=== PATIENT | male | born 1965 | race Caucasian/White ===

== ENCOUNTER 2022-06-29 17:45 | Emergency (ER) | payer OTHER ==
[~2022-06-29] VITALS: Ht 182 cm; Wt 70.0 kg
[2022-06-29] MEDS ORDERED: NS IV 1000 ML 1,000 ML IV SCH (18:30)
[2022-06-29 18:34] LABS: CALCIUM 10.1 MG/DL (8.5-10.1); CREATININE SERUM 1.01 MG/DL (0.60-1.30); MAGNESIUM 1.9 MG/DL (1.6-2.4); POTASSIUM 4.9 MMOL/L (3.6-5.0)
--- NOTE | 2022-06-29 18:34 | ED General ---
General Chief Complaint: General Problems/Pain Stated Complaint: IRR LAB RESULTS Nursing Triage Note: PT HAD AN ABNORMAL K+ LAST WEEK SO [facility]RAW TODAY [facility] LAST WEEK IT WAS 5.8. PT HAS NO COMPLAINTS. Source of Information: Patient Exam Limitations: No Limitations History of Present Illness Date Seen by Provider: Jun 29, 2022 Time Seen by Provider: 17:53 Initial Comments This 56-year-old gentleman presents to the emergency room at the direction of the local [place] [facility] for reasons of hyperkalemia. He has multiple medical problems including hypertension, diabetes, and COPD. He notes elevation in potassium started after he began lisinopril. On June 15 he was noted to have a potassium of 5.8. His lisinopril 40 mg dose was changed to lisinopril/HCTZ 20 mg / 12.5 mg. Despite making that change, his potassium today was 6.1. He does not identify any specific physical complaints. He was directed to the emergency room by Yoko South at the [place] [facility] for IV fluids and further evaluation. Patient reports his blood sugars have been fairly well controlled in the 100-150 range. Allergies and Home Medications Allergies Coded Allergies: No Known Drug Allergies (Unverified , 06/29/22) Patient Home Medication List Home Medication List Reviewed: Yes Review of Systems Review of Systems Constitutional: no symptoms reported EENTM: no symptoms reported Respiratory: no symptoms reported Cardiovascular: no symptoms reported Gastrointestinal: no symptoms reported Genitourinary: no symptoms reported Musculoskeletal: no symptoms reported Skin: no symptoms reported Psychiatric/Neurological: No Symptoms Reported Hematologic/Lymphatic: No Symptoms Reported Past Cxaqrwb-Baojym-Aiggfh Hx Patient Social History Tobacco Use?: Yes Tobacco type used: Cigarettes Use of E-Cig and/or Vaping dev: No Substance use?: Yes (CBD) Alcohol Use?: No Pt feels they are or have been: No Past Medical History Surgeries: No Respiratory: No Cardiac: No Neurological: No Genitourinary: No Gastrointestinal: No Musculoskeletal: No Endocrine: No HEENT: No Cancer: No Psychosocial: No Integumentary: No Physical Exam Vital Signs Vital Signs - First Documented 06/29/22 18:08 Temp 36.3 Pulse 79 Resp 18 B/P (MAP) 145/84 (104) Pulse Ox 99 O2 Delivery Room Air Capillary Refill : Less Than 3 Seconds Height, Weight, BMI Height: '" Weight: lbs. oz. kg; 21.00 BMI Method: General Appearance: No Apparent Distress, WD/WN HEENT: PERRL/EOMI, Normal ENT Inspection Neck: Normal Inspection Respiratory: Lungs Clear, Normal Breath Sounds, No Accessory Muscle Use Cardiovascular: Regular Rate, Rhythm, No Edema, No Murmur Gastrointestinal: Normal Bowel Sounds, Non Tender, Soft Extremity: Normal Inspection, No Pedal Edema Neurologic/Psychiatric: Alert, Oriented x3, No Motor/Sensory Deficits, Normal Mood/Affect, supervisor testing II-XII Norm as Tested Skin: Normal Color, Warm/Dry Progress/Results/Core Measures Suspected Sepsis SIRS Temperature: Pulse: 79 Respiratory Rate: 18 Blood Pressure 145 /84 Mean: 104 Laboratory Tests 06/29/22 18:00: Creatinine 1.01 Results/Orders Lab Results Laboratory Tests Test 06/29/22 18:00 Range/Units Sodium Level 128 L 135-145 MMOL/L Potassium Level 4.9 3.6-5.0 MMOL/L Chloride Level 91 L 98-107 MMOL/L Carbon Dioxide Level 26 21-32 MMOL/L Anion Gap 11 5-14 MMOL/L Blood Urea Nitrogen 25 H 7-18 MG/DL Creatinine 1.01 0.60-1.30 MG/DL Estimat Glomerular Filtration Rate 86 BUN/Creatinine Ratio 25 Glucose Level 105 70-105 MG/DL Calcium Level 10.1 8.5-10.1 MG/DL Magnesium Level 1.9 1.6-2.4 MG/DL My Orders Orders - JAMES BLACK MD Basic Metabolic Panel (06/29/22 17:53) Magnesium (06/29/22 17:53) Ed Iv/Invasive Line Start (06/29/22 17:53) Ekg Tracing (06/29/22 18:19) Ns Iv 1000 Ml (Sodium Chloride 0.9%) (06/29/22 18:30) Vital Signs/I&O 06/29/22 06/29/22 18:08 18:58 Temp 36.3 Pulse 79 73 Resp 18 16 B/P (MAP) 145/84 (104) 145/84 Pulse Ox 99 98 O2 Delivery Room Air Room Air 06/30/22 00:00 Intake Total 1000 ml Balance 1000 ml Capillary Refill : Less Than 3 Seconds Blood Pressure Mean: 104 Progress Note : Progress Note Patient was hydrated with a liter of IV normal saline. Potassium on our blood draw was normal. He did have some hyponatremia. The use of lisinopril and hydrochlorothiazide may be altering potassium and sodium levels. He was advised to discuss this with Yoko tomorrow and his follow-up appointment and to seek an alternative to lisinopril and hydrochlorothiazide for treatment of his blood pressure. ECG Initial ECG Impression Date: Jun 29, 2022 Initial ECG Impression Time: 18:14 Initial ECG Rate: 77 Initial ECG Rhythm: Normal Sinus Initial ECG Impression: Normal Comment Normal sinus rhythm with no ST elevation or depression. No abnormal intervals or axis deviation Departure Impression Primary Impression: Hyponatremia Additional Impression: History of hyperkalemia Disposition: HOME, SELF-CARE Condition: Improved Departure-Patient Inst. Decision time for Depature: 18:52 Referrals: YOKO MORRIS (PCP/Family) Primary Care Physician Patient Instructions: Hyponatremia (DC) Add. Discharge Instructions: Your potassium today in the emergency room was normal at 4.9. Your sodium was mildly low at 128. Keep your appointment with Yoko South tomorrow. Discuss changing your blood pressure medication to medications that do not have potential for disturbing electrolyte levels. The lisinopril has potential to increase potassium levels and the hydrochlorothiazide has potential to decrease sodium levels. There are alternatives such as amlodipine may be better tolerated and less likely to disrupt your electrolytes. Please discuss this with Yoko tomorrow. Return to care if you have any symptoms that need urgent attention. All discharge instructions reviewed with patient and/or family. Voiced understanding. JAMES BLACK MD Jun 29, 2022 18:33
[2022-06-29 18:58] VITALS: BP 145/84
== END 2022-06-29 19:23 | disposition home or self-care (01) ==
LOC: ER FS 17:49
DX: E87.1 Hypo-osmolality and hyponatremia (principal); E87.5 Hyperkalemia; I10 Essential (primary) hypertension; F17.210 Nicotine dependence, cigarettes, uncomplicated; Z79.899 Other long term (current) drug therapy
CPT/HCPCS: 36415; 80048; 83735; 93005

== ENCOUNTER → 2022-11-21 | Outpatient (CLI) | payer OTHER ==
--- NOTE | 2022-11-21 14:48 | Diagnostic Imaging Report ---
CLINICAL INDICATION: Patient has low back pain and years of wear and tear. Patient has history of multiple injuries. EXAM: MRI of the lumbar spine performed without IV contrast. Sagittal T2, sagittal T1, sagittal T2 fat-sat, and axial T2. COMPARISON: None. FINDINGS: There is no acute lumbar spine fracture. There is a small amount of Modic type I degenerative signal changes involving the L3-L4, L4-L5, and L5-S1 levels. There is no significant paraspinal soft tissue abnormality. The visualized portions of the distal thoracic spinal cord, conus medullaris, and cauda equina nerve roots are unremarkable. The conus medullaris tip is seen at the lower L1 vertebral body level. L1-L2: Unremarkable. L2-L3: There is uziz-rm-eboidawb bilateral facet arthropathy. There is mild diffuse disk bulge and moderate loss of disk space height. There are disk spurs extending into the right foraminal region with moderate right neural foramen narrowing. There is no significant left neural foramen narrowing. There is no significant central canal stenosis. L3-L4: There is diffuse disk bulge with fpes-sb-swxajojw loss of disk space height. There is severe bilateral neural foramen narrowing. There is no significant central canal stenosis. There is severe right neural foramen narrowing and moderate left neural foramen narrowing. L4-L5: There is a diffuse disk bulge with moderate loss of disk space height. There is moderate bilateral facet arthropathy. There is opgqohtn-cy-rasslt right neural foramen narrowing and severe left neural foramen narrowing. There is no significant central canal stenosis. L5-S1: There is grade 1 anterolisthesis of L5 on S1. There is a diffuse disk bulge with mphszkvn-qx-iwwoxy loss of disk space height and slight uncovering of the posterior aspect of the disk. There is moderate bilateral facet arthropathy. There is severe left neural foramen narrowing and mild right neural foramen narrowing. 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 Dictated by: Dictated on workstation # [id number]
== END ==
LOC: RAD 12:22
PROVIDERS: ATTEND Family Medicine
DX: M51.37 Other intervertebral disc degeneration, lumbosacral region (principal); M43.17 Spondylolisthesis, lumbosacral region; M51.27 Other intervertebral disc displacement, lumbosacral region; M47.817 Spondylosis without myelopathy or radiculopathy, lumbosacral region; M48.07 Spinal stenosis, lumbosacral region
CPT/HCPCS: 72148

== ENCOUNTER → 2023-03-22 | Outpatient (CLI) | payer OTHER ==
--- NOTE | 2023-03-22 16:20 | Diagnostic Imaging Report ---
Indication: Chronic low back pain. Time of Exam: 11:27 AM AP, lateral and coned lumbosacral views were obtained. Curvature is normal. There appears to be grade 1 spondylolisthesis of L5 on S1. Vertebral body heights are maintained. No acute compression fracture seen. Is multilevel degenerative disc disease with variable disc space narrowing and marginal spurring. IMPRESSION: Lumbar spondylosis. No acute bony abnormality is detected. Dictated by: Dictated on workstation # [id number]
== END ==
LOC: RAD FS 11:15
PROVIDERS: ATTEND Family Medicine
DX: Z01.89 Encounter for other specified special examinations (principal); M47.816 Spondylosis without myelopathy or radiculopathy, lumbar region
CPT/HCPCS: 72100